=== PATIENT | female | born 1970 | race Caucasian/White ===

== ENCOUNTER 2017-03-27 18:24 | Inpatient (IN) | payer OTHER ==
[~2017-03-27] VITALS: Ht 152.4 cm; Wt 89.2 kg
[~2017-03-27 18:24] MED LIST: ABILIFY5 MG PO; ACCUPRIL20 MG PO; ACETAMINOPHEN500 MG PO; ATIVAN2 MG PO; BUSPAR30 MG PO; BUSPAR5 MG PO; CLONAZEPAM2 MG PO; CYMBALTA60 MG PO; DICLOFENAC SOD100 MG PO; DURICEF1 GM PO; EFFEXOR XR37.5 MG PO; Ecotrin PO; FENOFIBRATE160 M1 PO; FENOGLIDE40 MG PO; FLEXERIL10 MG PO; FORTAMET1000 M1 PO; GLIPIZIDE10 MG PO; GLUCOPHAGE500 MG PO; HYDROCODON-ACE1 EAC9 PO; INSULIN PUMP SCCONT; LANTUS 3 M100 UNITS1 SC; LIPITOR40 MG PO; METOPROLOL TART25 MG PO; MEVACOR40 MG PO; NAPROXEN500 MG PO; NORCO 5/3251 TABLET PO; NOVOLOG PE100 UNITS/ SC; PRAVACHOL40 MG PO; Protonix PO; ROPINIROLE HCL2 MG PO; TRAMADOL HCL50 MG PO; TRAZODONE HCL50 MG PO; TYLENOL WITH C1 EACH PO; ULTRAM50 MG PO; ZANTAC150 MG PO; ZESTRIL20 MG PO; ZYVOX600 MG PO
[2017-03-27 18:46] LABS: BASOPHIL (%) 0.3 % (0-1); EOSINOPHIL (%) 1.2 % (0-5); EOSINOPHIL COUNT 0.1 K/uL (0-0.3); HEMATOCRIT 35.7 % (36.0-46.0); HEMOGLOBIN 12.3 G/DL (11.9-15.5); IMMATURE GRANULOCYTE (%) 0.8 % (0.0-0.7); LYMPHOCYTE (%) 20.1 % (15-42); LYMPHOCYTE COUNT 2.3 K/uL (1.0-2.8); MCH 31.9 PG (29.0-34.0); MCHC 34.5 G/DL (30.0-36.0); MCV 92.7 FL (83-99); MONOCYTE (%) 5.7 % (3-12); MONOCYTE COUNT 0.6 K/uL (0-0.8); NEUTROPHIL (%) 71.9 % (45-76); NEUTROPHIL COUNT 8.1 K/uL (1.8-6.4); PLATELET COUNT 272 K/uL (156-360); RBC DIS.WIDTH-CV 12.1 % (11.8-14.6); RBC DIS.WIDTH-SD 41.2 % (39-53); RED BLOOD COUNT 3.85 M/uL (3.80-5.20); WHITE BLOOD COUNT 11.3 K/uL (4.1-10.2)
[2017-03-27 18:57] LABS: CHLORIDE 98 mEq/L (99-109); POTASSIUM 4.5 mEq/L (3.7-5.4); SODIUM 134 mEq/L (136-147)
[2017-03-27 18:59] LABS: GLUCOSE 400 mg/dL (70-99)
[2017-03-27 19:03] LABS: CREATININE 0.9 mg/dL (0.6-1.3); GFR ESTIMATE (CALCULATED) > 59 mL/min/
[2017-03-27 19:04] LABS: UREA NITROGEN (BUN) 17 mg/dL (9-23)
[2017-03-27 21:20] LABS: C-REACTIVE PROTEIN 116.5 MG/L (0-10)
[2017-03-27] MEDS ORDERED: VENLAFAXINE HCL75 M3 PO (22:35)
[2017-03-27] MEDS ORDERED: MELOXICAM15 MG PO (22:37)
[2017-03-27] MEDS ORDERED: FENOFIBRATE134 M1 PO (22:38)
[2017-03-27] MEDS ORDERED: PRAVASTATIN SOD80 MG PO (22:39)
[2017-03-27] MEDS ORDERED: ARIPIPRAZOLE10 MG PO (22:40)
[2017-03-27] MEDS ORDERED: OXYCODONE HCL5 MG PO (22:42)
[2017-03-27] MEDS ORDERED: LYRICA75 MG PO ×2 (22:46→22:50)
[2017-03-27] MEDS ORDERED: LOPRESSOR25 MG PO (22:47)
[2017-03-27] MEDS ORDERED: ERGOCALCIF50000 UNIT PO (22:49)
[2017-03-28 03:16] VITALS: BP 135/91
[2017-03-28 07:11] LABS: BASOPHIL (%) 0.2 % (0-1); EOSINOPHIL (%) 1.7 % (0-5); EOSINOPHIL COUNT 0.2 K/uL (0-0.3); HEMATOCRIT 29.8 % (36.0-46.0); IMMATURE GRANULOCYTE (%) 0.7 % (0.0-0.7); LYMPHOCYTE (%) 24.3 % (15-42); LYMPHOCYTE COUNT 2.2 K/uL (1.0-2.8); MCH 31.4 PG (29.0-34.0); MCHC 33.2 G/DL (30.0-36.0); MCV 94.6 FL (83-99); MONOCYTE (%) 7.3 % (3-12); MONOCYTE COUNT 0.7 K/uL (0-0.8); NEUTROPHIL (%) 65.8 % (45-76); NEUTROPHIL COUNT 5.9 K/uL (1.8-6.4); PLATELET COUNT 242 K/uL (156-360); RBC DIS.WIDTH-CV 12.2 % (11.8-14.6); RBC DIS.WIDTH-SD 42.1 % (39-53); RED BLOOD COUNT 3.15 M/uL (3.80-5.20); WHITE BLOOD COUNT 8.9 K/uL (4.1-10.2)
[2017-03-28 07:15] LABS: CHLORIDE 103 MEQ/L (99-109); CREATININE 0.7 MG/DL (0.6-1.3); GFR ESTIMATE (CALCULATED) > 59 mL/min/; GLUCOSE 276 mg/dL (70-99); POTASSIUM 4.2 MEQ/L (3.7-5.4); SODIUM 136 MEQ/L (136-147); UREA NITROGEN (BUN) 14 mg/dL (9-23)
[2017-03-28 07:30] LABS: HEMOGLOBIN 9.9 G/DL (11.9-15.5)
[2017-03-28 08:24] VITALS: BP 125/70
[2017-03-28 12:09] VITALS: BP 136/78
[2017-03-28 12:10] LABS: APPEARANCE CLEAR ((CLEAR)); BILIRUBIN NEGATIVE; BLOOD SMALL; COLOR YELLOW ((YELLOW)); GLUCOSE (STRIP) >=500; KETONES NEGATIVE; LEUKOCYTES NEGATIVE; NITRITE NEGATIVE; PROTEIN (STRIP) NEGATIVE; SPECIFIC GRAVITY 1.014 (1.000-1.030); UROBILINOGEN 0.2 MG/DL (0.2-1.0)
[2017-03-28 12:21] LABS: BACTERIA RARE /HPF; EPITHELIAL CELLS RARE /HPF; MUCUS TRACE /LPF; UCUL ADDED? YES
[2017-03-28 15:53] VITALS: BP 125/73
[2017-03-28 20:17] VITALS: BP 124/63
[2017-03-29 00:05] VITALS: BP 139/76
[2017-03-29 03:29] VITALS: BP 136/81
[2017-03-29 03:44] LABS: HEMATOCRIT 29.8 % (36.0-46.0); HEMOGLOBIN 10.3 G/DL (11.9-15.5); MCH 32.2 PG (29.0-34.0); MCHC 34.6 G/DL (30.0-36.0); MCV 93.1 FL (83-99); PLATELET COUNT 247 K/uL (156-360); RBC DIS.WIDTH-CV 11.8 % (11.8-14.6); RBC DIS.WIDTH-SD 40.2 % (39-53); WHITE BLOOD COUNT 8.4 K/uL (4.1-10.2)
[2017-03-29 03:52] LABS: CHLORIDE 104 mEq/L (99-109); POTASSIUM 4.6 mEq/L (3.7-5.4); SODIUM 137 mEq/L (136-147)
[2017-03-29 03:54] LABS: GLUCOSE 224 mg/dL (70-99)
[2017-03-29 03:58] LABS: CREATININE 0.8 mg/dL (0.6-1.3); GFR ESTIMATE (CALCULATED) > 59 mL/min/
[2017-03-29 03:59] LABS: UREA NITROGEN (BUN) 13 mg/dL (9-23)
[2017-03-29 07:49] VITALS: BP 123/61
[2017-03-29 11:50] VITALS: BP 136/81
[2017-03-29 15:46] VITALS: BP 138/63
[2017-03-30 00:07] VITALS: BP 139/68
[2017-03-30 08:00] VITALS: BP 120/70
[2017-03-30 16:46] VITALS: BP 136/80
[2017-03-31 00:35] VITALS: BP 110/64
[2017-03-31 04:05] VITALS: BP 128/77
[2017-03-31 05:52] LABS: HEMATOCRIT 28.3 % (36.0-46.0); HEMOGLOBIN 9.4 G/DL (11.9-15.5); MCH 31.3 PG (29.0-34.0); MCHC 33.2 G/DL (30.0-36.0); MCV 94.3 FL (83-99); PLATELET COUNT 288 K/uL (156-360); RBC DIS.WIDTH-SD 41.6 % (39-53); WHITE BLOOD COUNT 10.2 K/uL (4.1-10.2)
[2017-03-31 06:32] LABS: CHLORIDE 102 MEQ/L (99-109); CREATININE 0.9 MG/DL (0.6-1.3); GFR ESTIMATE (CALCULATED) > 59 mL/min/; GLUCOSE 300 mg/dL (70-99); POTASSIUM 4.6 MEQ/L (3.7-5.4); SODIUM 140 MEQ/L (136-147); UREA NITROGEN (BUN) 15 mg/dL (9-23)
[2017-03-31 07:07] VITALS: BP 130/74
[2017-03-31 11:07] LABS: Estimated Average Glucose 232 mg/dL (70-123); HEMOGLOBIN A1c (GLYCOHEMOGLOB) 9.7 % HGB (Below 5.7)
[2017-03-31 15:26] VITALS: BP 144/80
[2017-03-31 23:22] VITALS: BP 123/73
[2017-04-01 06:45] LABS: HEMATOCRIT 29.2 % (36.0-46.0); HEMOGLOBIN 9.4 G/DL (11.9-15.5); MCH 30.7 PG (29.0-34.0); MCHC 32.2 G/DL (30.0-36.0); MCV 95.4 FL (83-99); PLATELET COUNT 313 K/uL (156-360); RBC DIS.WIDTH-CV 12.2 % (11.8-14.6); RBC DIS.WIDTH-SD 42.5 % (39-53); RED BLOOD COUNT 3.06 M/uL (3.80-5.20); WHITE BLOOD COUNT 9.3 K/uL (4.1-10.2)
[2017-04-01 07:03] VITALS: BP 134/71
[2017-04-01 07:13] LABS: CHLORIDE 106 MEQ/L (99-109); CREATININE 0.8 MG/DL (0.6-1.3); GFR ESTIMATE (CALCULATED) > 59 mL/min/; SODIUM 143 MEQ/L (136-147); UREA NITROGEN (BUN) 12 mg/dL (9-23)
[2017-04-01 07:14] LABS: GLUCOSE 77 mg/dL (70-99)
[2017-04-01 15:15] VITALS: BP 161/84
[2017-04-01 23:11] VITALS: BP 128/74
[2017-04-02 07:59] VITALS: BP 131/60
[2017-04-02 09:22] LABS: CHLORIDE 103 MEQ/L (99-109); CREATININE 0.8 MG/DL (0.6-1.3); GFR ESTIMATE (CALCULATED) > 59 mL/min/; POTASSIUM 4.5 MEQ/L (3.7-5.4); SODIUM 141 MEQ/L (136-147); UREA NITROGEN (BUN) 13 mg/dL (9-23)
[2017-04-02 09:27] LABS: GLUCOSE 109 mg/dL (70-99)
[2017-04-02] MEDS ORDERED: POLYETHYLENE GL17 GM PO (14:41)
[2017-04-02] MEDS ORDERED: LYRICA50 MG PO ×3 (14:43→14:47)
[2017-04-02] MEDS ORDERED: OXYCODONE HCL5 MG PO (14:43)
[2017-04-02 15:57] VITALS: BP 138/66
[2017-04-03] VITALS: BP 146/68
[2017-04-03 06:59] LABS: BASOPHIL (%) 0.6 % (0-1); EOSINOPHIL COUNT 0.3 K/uL (0-0.3); HEMATOCRIT 28.6 % (36.0-46.0); HEMOGLOBIN 9.4 G/DL (11.9-15.5); IMMATURE GRANULOCYTE (%) 1.8 % (0.0-0.7); LYMPHOCYTE (%) 30.3 % (15-42); MCH 30.8 PG (29.0-34.0); MCHC 32.9 G/DL (30.0-36.0); MCV 93.8 FL (83-99); MONOCYTE (%) 5.8 % (3-12); MONOCYTE COUNT 0.4 K/uL (0-0.8); NEUTROPHIL (%) 57.5 % (45-76); NEUTROPHIL COUNT 3.9 K/uL (1.8-6.4); NRBC (%) 0.3 /100 WBC (0-0); PLATELET COUNT 311 K/uL (156-360); RBC DIS.WIDTH-CV 12.1 % (11.8-14.6); RBC DIS.WIDTH-SD 41.4 % (39-53); RED BLOOD COUNT 3.05 M/uL (3.80-5.20); WHITE BLOOD COUNT 6.7 K/uL (4.1-10.2)
[2017-04-03 07:21] LABS: CHLORIDE 102 MEQ/L (99-109); CREATININE 0.8 MG/DL (0.6-1.3); GFR ESTIMATE (CALCULATED) > 59 mL/min/; GLUCOSE 108 mg/dL (70-99); POTASSIUM 4.7 MEQ/L (3.7-5.4); SODIUM 143 MEQ/L (136-147); UREA NITROGEN (BUN) 14 mg/dL (9-23)
[2017-04-03 08:39] VITALS: BP 159/88
[2017-04-03 16:00] VITALS: BP 164/87
[2017-04-04 00:14] VITALS: BP 155/75
[2017-04-04 07:08] LABS: BASOPHIL (%) 0.5 % (0-1); EOSINOPHIL (%) 3.6 % (0-5); EOSINOPHIL COUNT 0.3 K/uL (0-0.3); HEMATOCRIT 29.4 % (36.0-46.0); HEMOGLOBIN 9.9 G/DL (11.9-15.5); IMMATURE GRANULOCYTE (%) 1.9 % (0.0-0.7); LYMPHOCYTE (%) 21.3 % (15-42); LYMPHOCYTE COUNT 1.7 K/uL (1.0-2.8); MCH 31.3 PG (29.0-34.0); MCHC 33.7 G/DL (30.0-36.0); MONOCYTE (%) 5.5 % (3-12); MONOCYTE COUNT 0.4 K/uL (0-0.8); NEUTROPHIL (%) 67.2 % (45-76); NEUTROPHIL COUNT 5.3 K/uL (1.8-6.4); NRBC (%) 0.5 /100 WBC (0-0); PLATELET COUNT 277 K/uL (156-360); RBC DIS.WIDTH-SD 41.1 % (39-53); RED BLOOD COUNT 3.16 M/uL (3.80-5.20); WHITE BLOOD COUNT 7.8 K/uL (4.1-10.2)
[2017-04-04 07:25] VITALS: BP 177/96
[2017-04-04 07:26] LABS: CHLORIDE 100 MEQ/L (99-109); CREATININE 0.9 MG/DL (0.6-1.3); GFR ESTIMATE (CALCULATED) > 59 mL/min/; GLUCOSE 98 mg/dL (70-99); POTASSIUM 4.2 MEQ/L (3.7-5.4); SODIUM 142 MEQ/L (136-147); UREA NITROGEN (BUN) 14 mg/dL (9-23)
[2017-04-04 08:45] VITALS: BP 156/74
[2017-04-04 13:18] VITALS: BP 142/70
[2017-04-04 15:10] VITALS: BP 152/74
[2017-04-04 18:00] LABS: INTER. NORMALIZED RATIO 1.4
[2017-04-04 23:55] VITALS: BP 139/65
[2017-04-05 07:10] VITALS: BP 164/78
[2017-04-05 15:05] VITALS: BP 180/96
[2017-04-05 19:41] VITALS: BP 162/73
[2017-04-05 23:09] VITALS: BP 173/78
[2017-04-06] VITALS: BP 155/80
[2017-04-06 04:25] VITALS: BP 137/78
[2017-04-06 06:17] LABS: BASOPHIL (%) 0.6 % (0-1); BASOPHIL COUNT 0.1 K/uL (0-0.1); EOSINOPHIL COUNT 0.3 K/uL (0-0.3); HEMATOCRIT 30.9 % (36.0-46.0); HEMOGLOBIN 10.2 G/DL (11.9-15.5); IMMATURE GRANULOCYTE (%) 3.8 % (0.0-0.7); LYMPHOCYTE (%) 26.2 % (15-42); LYMPHOCYTE COUNT 2.2 K/uL (1.0-2.8); MCH 30.3 PG (29.0-34.0); MCV 91.7 FL (83-99); MONOCYTE (%) 5.9 % (3-12); MONOCYTE COUNT 0.5 K/uL (0-0.8); NEUTROPHIL (%) 59.5 % (45-76); NRBC (%) 0.4 /100 WBC (0-0); PLATELET COUNT 255 K/uL (156-360); RBC DIS.WIDTH-CV 12.1 % (11.8-14.6); RBC DIS.WIDTH-SD 40.3 % (39-53); RED BLOOD COUNT 3.37 M/uL (3.80-5.20); WHITE BLOOD COUNT 8.5 K/uL (4.1-10.2)
[2017-04-06 06:46] LABS: CHLORIDE 100 MEQ/L (99-109); GFR ESTIMATE (CALCULATED) > 59 mL/min/; GLUCOSE 93 mg/dL (70-99); POTASSIUM 3.8 MEQ/L (3.7-5.4); SODIUM 142 MEQ/L (136-147); UREA NITROGEN (BUN) 21 mg/dL (9-23)
[2017-04-06 07:28] VITALS: BP 141/76
[2017-04-06 15:45] LABS: TYPE OF FLUID PLEURAL
[2017-04-06 15:50] VITALS: BP 168/81
[2017-04-06 17:53] LABS: APPEARANCE CLOUDY-ORANGE; BODY FLUID EOSINOPHILS 1 % (0-25); BODY FLUID RBC'S 7000 /MM^3 (0-100); BODY FLUID WBC'S 920 /MM^3 (0-500); MONONUCLEAR WBC'S 88 %; POLYNUCLEAR WBC'S 11 % (0-25)
[2017-04-06 19:49] LABS: BODY FLUID GLUCOSE 148 MG/DL; BODY FLUID LDH 89 IU/L; BODY FLUID PROTEIN < 3 G/DL
[2017-04-06 23:50] VITALS: BP 135/64
[2017-04-07 08:34] VITALS: BP 136/81
[2017-04-07 11:50] VITALS: BP 106/59
[2017-04-10 03:54] LABS: BODY FLUID PH 8.3 (())
== END 2017-04-07 18:29 | disposition home health service (06) | DRG 492 ==
LOC: EME 18:24 → EDOF 03-28 00:43 → 3EAST 03-28 00:43 → ENRESERV 03-28 00:45 → 3EAST 03-28 02:19
PROVIDERS: Hospitalist; Internal Medicine; Internal Medicine Pulmonary Disease; Physician Assistant; Radiology Diagnostic Radiology
DX: M86.9 Osteomyelitis, unspecified (principal); L03.116 Cellulitis of left lower limb; J18.9 Pneumonia, unspecified organism; J96.01 Acute respiratory failure with hypoxia; L02.416 Cutaneous abscess of left lower limb; L02.612 Cutaneous abscess of left foot; E11.65 Type 2 diabetes mellitus with hyperglycemia; E11.69 Type 2 diabetes mellitus with other specified complication; F31.9 Bipolar disorder, unspecified; E78.5 Hyperlipidemia, unspecified; E66.9 Obesity, unspecified; G25.81 Restless legs syndrome; I10 Essential (primary) hypertension; E87.2 Acidosis; M79.7 Fibromyalgia; J90 Pleural effusion, not elsewhere classified; G47.33 Obstructive sleep apnea (adult) (pediatric); L03.115 Cellulitis of right lower limb; B95.5 Unspecified streptococcus as the cause of diseases classified elsewhere; E11.40 Type 2 diabetes mellitus with diabetic neuropathy, unspecified; E11.610 Type 2 diabetes mellitus with diabetic neuropathic arthropathy; J45.909 Unspecified asthma, uncomplicated; K21.9 Gastro-esophageal reflux disease without esophagitis; Y95 Nosocomial condition; Z96.41 Presence of insulin pump (external) (internal); Z87.891 Personal history of nicotine dependence; Z87.442 Personal history of urinary calculi; Z79.4 Long term (current) use of insulin; Z68.38 Body mass index [BMI] 38.0-38.9, adult; Z79.2 Long term (current) use of antibiotics; Z83.3 Family history of diabetes mellitus
CPT/HCPCS: 36415; 71010; 71020; 71275; 73600; 76000; 76937; 76942; 80048; 80048 91; 80202; 81003; 82945; 82948; 83036; 83605; 83615 91; 83880; 83986 90; 84157; 85025; 85025 91; 85027; 85379; 85610; 85651; 85730; 86140; 87040; 87070; 87075; 87076; 87086; 87205; 88108; 88305; 89051; 93306; 93971; 94640; 94640 76; 94660; 94799; 97530 GP; 99202; 99281; 99285; C1713; J0290; J0692; J1100; J1170; J1650; J1815; J1940; J1956; J2250; J2270; J2405; J3010; J3370; J7030; J7050; S0020

== ENCOUNTER 2017-04-29 07:13 | Day surgery (SDC) | payer OTHER ==
[~2017-04-29] VITALS: Ht 152.4 cm; Wt 86.2 kg
[~2017-04-29 07:13] MED LIST changes: +ABILIFY10 MG PO; +ARIPIPRAZOLE10 MG PO; +EFFEXOR XR75 MG PO; +ERGOCALCIF50000 UNIT PO; +FENOFIBRATE134 M1 PO; +INSULIN PUMP MC; +LOPRESSOR25 MG PO; +LYRICA50 MG PO; +LYRICA75 MG PO; +MELOXICAM15 MG PO; +OXYCODONE HCL10 MG PO; +OXYCODONE HCL5 MG PO; +POLYETHYLENE GL17 GM PO; +PRAVACHOL80 MG PO; +PRAVASTATIN SOD80 MG PO; +VENLAFAXINE HCL75 M3 PO; +VENTOLIN HFA18 GM IH
[2017-04-29 07:47] VITALS: BP 121/73
[2017-04-29 15:03] VITALS: BP 126/60
[2017-04-29 15:41] VITALS: BP 127/65
== END 2017-04-29 15:55 | disposition home or self-care (01) ==
LOC: SDC 07:13
PROVIDERS: Podiatrist Foot & Ankle Surgery
DX: T81.32XA Disruption of internal operation (surgical) wound, not elsewhere classified, initial encounter (principal); T85.898A Other specified complication of other internal prosthetic devices, implants and grafts, initial encounter; M86.262 Subacute osteomyelitis, left tibia and fibula; L97.329 Non-pressure chronic ulcer of left ankle with unspecified severity; L97.429 Non-pressure chronic ulcer of left heel and midfoot with unspecified severity; E11.40 Type 2 diabetes mellitus with diabetic neuropathy, unspecified; Z79.4 Long term (current) use of insulin; E66.9 Obesity, unspecified; Z68.36 Body mass index [BMI] 36.0-36.9, adult; J45.909 Unspecified asthma, uncomplicated; F31.9 Bipolar disorder, unspecified; I10 Essential (primary) hypertension; E78.5 Hyperlipidemia, unspecified; Z87.891 Personal history of nicotine dependence; Z83.3 Family history of diabetes mellitus; Z83.49 Family history of other endocrine, nutritional and metabolic diseases; Z88.8 Allergy status to other drugs, medicaments and biological substances; Y83.8 Other surgical procedures as the cause of abnormal reaction of the patient, or of later complication, without mention of misadventure at the time of the procedure
CPT/HCPCS: 82948; C1769; J0330; J1100; J1170; J1885; J2250; J2370; J2405; J3010; J3370; S0020